=== PATIENT | female | born 1950 | race Caucasian/White ===

== ENCOUNTER 2016-09-25 07:58 | Day surgery (SDC) | payer BC ==
[2016-09-23 11:38] VITALS: BMI 37.4
[~2016-09-25 07:58] MED LIST: CLINDAMYCIN 900 MG in DEXTROSE 5% IN WATER 50 ML IVPB ONE; DEXAMETHASONE SOD PHOSPHATE 10 MG/ML 1 ML VIAL IV ONE; HEPARIN SODIUM,PORCINE 5,000 UNIT/ML 1 ML VIAL SQ ONE; HYDROmorphone 1 MG/ML 1 ML SYRINGE IVP PRN; LACTATED RINGERS 1,000 ML IV SCH; MIDAZOLAM 2 MG/2 ML VIAL IV PRN; ONDANSETRON 4 MG/2 ML VIAL IVP ONE
[2016-09-25 08:27] VITALS: TEMP 97.5
[2016-09-25] MEDS ORDERED: LIDOCAINE 1% 20 ML VIAL (10MG/ML) FOR IV START INTRADERMA ONE (08:49)
[2016-09-25 08:54] LABS: Glucose,Whole Blood 130 mg/dL (75-99)
--- NOTE | 2016-09-25 09:29 | P.GSHP ---
History of Present Illness H&P Date: 09/25/16 Chief Complaint: Lung cancer Patient here today for Port-A-Cath placement. This is her second round of chemotherapy. Her first round of chemotherapy she did not have a Port-A-Cath. In treated for metastatic lung cancer. Patient is not had previous catheters. No active shortness of breath presently. Past Medical History Past Medical History: Coronary Artery Disease (CAD), Cancer, CVA/TIA, GERD/ Reflux, Hyperlipidemia, Hypertension, Renal Disease, Rheumatoid Arthritis (RA) History of Any Multi-Drug Resistant Organisms: None Reported Past Surgical History: Appendectomy, Bladder Surgery, Heart Catheterization With Stent, Hysterectomy, Joint Replacement, Orthopedic Surgery, Tonsillectomy Additional Past Surgical History / Comment(s): palate and tongue with uvula removal surgery for sleep apnea 2001 Past Anesthesia/Blood Transfusion Reactions: No Reported Reaction Date of Last Stent Placement:: 11/2014 Past Psychological History: No Psychological Hx Reported Smoking Status: Former smoker Past Alcohol Use History: None Reported Past Drug Use History: None Reported - Past Family History Mother Family Medical History: No Reported History Medications and Allergies Home Medications Medication Instructions Recorded Confirmed Type Albuterol Nebulized [Ventolin 2.5 mg INHALATION Q6H 09/23/16 09/23/16 History Nebulized] Allopurinol [Zyloprim] 100 mg PO DAILY 09/23/16 09/23/16 History Aspirin 325 mg PO DAILY 09/23/16 09/23/16 History Atorvastatin [Lipitor] 40 mg PO DAILY 09/23/16 09/23/16 History Clopidogrel [Plavix] 75 mg PO DAILY 09/23/16 09/23/16 History Gabapentin [Neurontin] 300 mg PO BID 09/23/16 09/23/16 History HYDROcodone/APAP 10-325MG [[place] 1 - 2 tab PO Q6H PRN 09/23/16 09/23/16 History 10-325] Magnesium Oxide [Mag-Ox] 400 mg PO BID 09/23/16 09/23/16 History Metoprolol Succinate [Toprol XL] 50 mg PO DAILY 09/23/16 09/23/16 History Omeprazole 20 mg PO DAILY 09/23/16 09/23/16 History Potassium Chloride [Klor-Con 20] 20 meq PO BID 09/23/16 09/23/16 History Triamterene-Hctz 37.5-25Mg 1 cap PO DAILY 09/23/16 09/23/16 History [Dyazide 37.5-25 Capsule] Turmeric Root Extract [Turmeric] 500 mg PO DAILY 09/23/16 09/23/16 History Ubidecarenone [Co Q-10] 100 mg PO DAILY 09/23/16 09/23/16 History amLODIPine [Norvasc] 2.5 mg PO DAILY 09/23/16 09/23/16 History metFORMIN HCL [Glucophage] 500 mg PO BID 09/23/16 09/23/16 History Allergies Allergy/AdvReac Type Severity Reaction Status Date / Time niacin Allergy gets Verified 09/23/16 11:11 flushed and passes out adhesive tape AdvReac takes the Verified 09/23/16 11:20 skin off Penicillins AdvReac Anaphylaxis Verified 09/23/16 10:50 Surgical - Exam Vital Signs Temp Pulse Resp BP Pulse Ox 97.5 F L 66 18 123/80 96 09/25/16 08:26 09/25/16 08:26 09/25/16 08:26 09/25/16 08:26 09/25/16 08:26 Physical exam: General: Well-developed, well-nourished HEENT: Normocephalic, sclerae nonicteric Abdomen: Nontender, nondistended Extremities: No edema Neuro: Alert and oriented Results - Labs Abnormal Lab Results - Last 24 Hours (Table) 09/25/16 Range/Units 08:39 POC Glucose (mg/dL) 130 H (75-99) mg/dL Assessment and Plan (1) Lung cancer Narrative/Plan: Will proceed with Port-A-Cath placement. The risks of bleeding, infection, pneumothorax, DVT, catheter malfunction were discussed. She understands and wishes to proceed. Status: Acute
[2016-09-25] MEDS ORDERED: MIDAZOLAM 2 MG/2 ML VIAL ONE (09:45)
[2016-09-25] MEDS ORDERED: PROPOFOL 10 MG/ML 20 ML VIAL IV ONE (09:45)
[2016-09-25] MEDS ORDERED: fentaNYL (PF) 50 MCG/ML 2 ML AMP ONE (09:45)
[2016-09-25] MEDS ORDERED: LIDOCAINE 1% INJ 10MG/ML (20 ML MDV) ONE (09:45)
[2016-09-25] MEDS ORDERED: LIDOCAINE (PF) 10 MG/ML 2 ML VIAL SQ ONE ×2 (10:08)
[2016-09-25] MEDS ORDERED: HEPARIN SODIUM,PORCINE 100 UNIT/ML 5 ML VIAL IV ONE ×2 (10:09)
--- NOTE | 2016-09-25 10:56 | FL ---
Fluoroscopy HISTORY: Pain 20 seconds fluoroscopy time supplied to the referring clinician. 1 intraoperative C-arm images docum ent the procedure. See dictated report from general surgery.
[2016-09-25] MEDS ORDERED: NALOXONE 0.4 MG/ML 1 ML VIAL IV PRN (11:12)
[2016-09-25] MEDS ORDERED: HYDROcodone/APAP 5-325MG 1 EACH TAB PO PRN (11:12)
--- NOTE | 2016-09-25 11:13 | P.PCN ---
Date of Procedure: 09/25/16 Procedure(s) Performed: PREOPERATIVE DIAGNOSIS: Lung cancer POSTOPERATIVE DIAGNOSIS: Same PROCEDURE: Port-A-Cath placement SURGEON: Tangela EBL: Minimal ANESTHESIA: Sedation COMPLICATIONS: None OPERATIVE PROCEDURE: Patient was brought and placed on the operative table in the supine position. The patient was sedated per anesthesia that time. The chest and neck were prepped and draped in usual sterile fashion. The ultrasound probe was used to identify the location of the right internal jugular vein. The skin was localized with lidocaine. The Seldinger needle was advanced into the IJ under ultrasound guidance. The wire was advanced through the needle under fluoroscopic guidance into the superior vena cava. A port pocket was created in the right infraclavicular location. The catheter was tunneled from the wire entrance site to the port pocket. The port was then connected to the catheter. The dilator introducer was threaded over the guidewire. The guidewire and dilator were then removed. The catheter was advanced through the introducer and introducer was then removed. The tip was seen to be in the right atrial junction. Port was flushed with both saline and a Hep-Lock solution. There was good flow both in and out of the port. The port was sutured in underlying tissues using 3-0 silk sutures. The subcutaneous tissues were reapproximated using 3-0 Vicryl sutures and the skin at both locations using 4-0 Monocryl sutures. Steri-Strips and sterile dressings then applied. DISPOSITION: Stable to recovery room
--- NOTE | 2016-09-25 11:44 | XR ---
EXAMINATION TYPE: XR chest 1V confirm line [facility] DATE OF EXAM: 09/25/2016 11:11 AM COMPARISON: NONE HISTORY: Status post central venous catheter placement TECHNIQUE: Single frontal view of the chest is obtained. FINDINGS: There is a right jugular central venous catheter, distal tip is present coursing towards t he cavoatrial junction level. There is no pneumothorax. Port is present in the right pectoral region. No sizable effusion. Lung volumes are low. Mass is present in the left upper lobe. IMPRESSION: No evident complication status post central venous catheter placement.
[2016-09-25 11:56] VITALS: PULSE 72; RESP 16
[2016-09-25 11:57] VITALS: BP 99/70
== END 2016-09-25 12:23 | disposition home or self-care (01) ==
LOC: OR 07:58
PROVIDERS: ATTEND Surgery
DX: C78.00 Secondary malignant neoplasm of unspecified lung (principal); Z92.21 Personal history of antineoplastic chemotherapy; I25.10 Atherosclerotic heart disease of native coronary artery without angina pectoris; K21.9 Gastro-esophageal reflux disease without esophagitis; E78.5 Hyperlipidemia, unspecified; I10 Essential (primary) hypertension; N28.9 Disorder of kidney and ureter, unspecified; M06.9 Rheumatoid arthritis, unspecified; Z95.5 Presence of coronary angioplasty implant and graft; E11.9 Type 2 diabetes mellitus without complications; M10.9 Gout, unspecified; Z86.73 Personal history of transient ischemic attack (TIA), and cerebral infarction without residual deficits; Z79.02 Long term (current) use of antithrombotics/antiplatelets; Z79.84 Long term (current) use of oral hypoglycemic drugs; Z79.82 Long term (current) use of aspirin; Z79.891 Long term (current) use of opiate analgesic; Z79.899 Other long term (current) drug therapy; Z88.8 Allergy status to other drugs, medicaments and biological substances; Z88.0 Allergy status to penicillin; Z87.891 Personal history of nicotine dependence
CPT/HCPCS: 77001; 36561; C1788; J2250; J2001 ×2; J1644; J1642; J1100; J2405; J3010; J2704